=== PATIENT | female | born 1950 | race Caucasian/White ===

== ENCOUNTER 2020-01-06 07:26 | Emergency (ER) | payer OTHER ==
[~2020-01-06] VITALS: Ht 160 cm; Wt 56.7 kg
--- NOTE | 2020-01-06 07:51 | NUR ---
ED Nurse Note: Pt had bilateral flank pain for 4 months pain 09/01. Pt denies hematuria. Pt is alert and orientedx4, ambulatory. Pt has been seen by ERMD. Urine sent to lab. Pt denies nausea, vomiting.
[2020-01-06 07:52] VITALS: BP 151/87
--- NOTE | 2020-01-06 07:57 | Emergency Room Report ---
History of Present Illness General Chief Complaint: Back Pain-No Injury Source: Patient Present Illness HPI Patient is a 69-year-old female presents for increased bilateral low back pain. Reports having intermittent symptoms over the past few days. Had improvement in pain just prior to arrival. Denies any urinary urgency or frequency reports having similar pain in the past and was previously diagnosed with kidney stone many years ago. Does not take any medications regularly. Denies prior surgeries. Denies any lower extremity discomfort or fever. Patient denies any incontinence of urine. Allergies: Coded Allergies: No Known Allergies (Unverified , 01/06/20) COVID-19 Screening Contact w/high risk pt: No Experienced COVID-19 symptoms?: No COVID-19 Testing performed MATHEMATICS DEPARTMENT CHAIR: No Patient History Past Medical History: see triage record Reviewed Nursing Documentation: PMH: Agreed; PSxH: Agreed Nursing Documentation-PMH Past Medical History: No History, Except For Hx Dialysis: No - kidney stones in 2009 Review of Systems All Other Systems: negative except mentioned in HPI Physical Exam Vital Signs Date Time Temp Pulse Resp B/P (MAP) Pulse Ox O2 Delivery O2 Flow Rate FiO2 01/06/20 07:32 98.2 109 20 160/90 (113) 99 Room Air Sp02 EP Interpretation: reviewed, normal General Appearance: normal inspection, well appearing, no apparent distress, alert, GCS 15 Head: atraumatic ENT: normal ENT inspection, hearing grossly normal, normal voice Neck: normal inspection, full range of motion, supple, no bony tend Respiratory: normal inspection, lungs clear, normal breath sounds, no respiratory distress, no retraction, no wheezing Cardiovascular #1: regular rate, rhythm, no edema Gastrointestinal: normal inspection, normal bowel sounds, non tender, soft, no guarding, no hernia Genitourinary: no CVA tenderness Musculoskeletal: normal inspection, back normal, normal range of motion Neurologic: alert, responsive, speech normal, normal inspection Psychiatric: normal inspection, judgement/insight normal, mood/affect normal Medical Decision Making Diagnostic Impression: Primary Impression: Cholelithiasis Additional Impressions: Pancreatic mass Lymphadenopathy Glucosuria ER Course Patient presented for low back pain and flank pain. Differential diagnosis include was not limited to kidney stone, urinary tract infection, gastroenteritis among others. Patient has a benign exam and does not appear to require laboratory testing at this time. Patient was offered laboratory testing which she declined. CT imaging was ordered to evaluate for possible st one.Patient denies any current symptoms other than 1/10 pain currently. Patient with strongly advised to seek primary care for further evaluation. She also declined fingerstick to evaluate for possible diabetes. Patient was advised multiple times that she should have further work-up of sugar in her urine. Patient politely declined.Urinalysis did not show any evidence of any definite infection. Will defer treatment of possible urinary tract infection until culture results.CT imaging read by radiology showed 2cm poorly demonstrated pancreatic head mass with perihepatic pancreatic fat infiltration and peripancreatic adenopathy as well as dilated bile ductsGallbladder stones were also noted. Patient was offered hospitalization and laboratory testing which she declined. Patient states she is not having any significant pain at this time. She declines pain medications. Patient was advised to return if she changed her mind or had any worsening condition or other concerns. This medical record is generated with [employer] center administrator software. There may be some center administrator discrepancies related to use of this software Labs Test 01/06/20 07:50 Urine Color Yellow Urine Appearance Clear Urine pH 5 (4.5-8.0) Urine Specific [place] 1.015 (1.005-1.035) Urine Protein 2+ (NEGATIVE) Urine Glucose (UA) 4+ (NEGATIVE) Urine Ketones 4+ (NEGATIVE) Urine Blood 1+ (NEGATIVE) Urine Nitrite Negative (NEGATIVE) Urine Bilirubin Negative (NEGATIVE) Urine Urobilinogen Normal MG/DL (0.0-1.0) Urine Leukocyte Esterase Negative (NEGATIVE) Urine RBC 0-2 /HPF (0 - 2) Urine WBC 0 /HPF (0 - 2) Urine Squamous Epithelial Cells Few /LPF (NONE/OCC) Urine Bacteria Occasional /HPF (NONE) Last Vital Signs Date Time Temp Pulse Resp B/P (MAP) Pulse Ox O2 Delivery O2 Flow Rate FiO2 01/06/20 07:32 98.2 109 20 160/90 (113) 99 Room Air Status: improved Disposition: HOME, SELF-CARE Condition: Stable Marcello Parks MD Jan 06, 2020 07:57
[2020-01-06 08:03] LABS: APPEARANCE,URINE CLEAR; BILIRUBIN, URINE NEGATIVE (NEGATIVE); GLUCOSE, URINE (UA) 4+ (NEGATIVE); KETONES,URINE 4+ (NEGATIVE); LEUKOCYTE ESTERASE ,URINE NEGATIVE (NEGATIVE); NITRITE,URINE NEGATIVE (NEGATIVE); PH,URINE 5 (4.5-8.0); PROTEIN,URINE 2+ (NEGATIVE); UROBILINOGEN,URINE NORMAL MG/DL (0.0-1.0)
[2020-01-06 08:10] LABS: COLOR,URINE YELLOW
[2020-01-06 09:47] VITALS: BP 147/85
--- NOTE | 2020-01-06 09:48 | NUR ---
ER DISCHARGE NOTE: Patient is cleared to be discharged per ERMD, pt is aox4, on room air, with stable vital signs. pt was given dc and prescription instructions, pt was able to verbalize understanding, pt id band removed. pt is able to ambulate with steady gait. pt took all belongings. Pt educated regarding f/u with GI and diagnoses.
--- NOTE | 2020-01-06 16:28 | Diagnostic Imaging Report ---
Indication: Bilateral low back pain, intermittent symptoms over the past few days Technique: Spiral acquisitions obtained through the abdomen and pelvis. No oral contrast utilized, per emergency room physician request No IV contrast utilized, per referring physician request.. Multiplanar reconstructions were generated. Total dose length product 165 mGycm. CTDIvol(s) 3 mGy. Dose reduction achieved using automated exposure control Comparison: None Findings: There is an ill-defined low-density mass within the pancreatic head and uncinate which measures approximately 2 cm in diameter, poorly visualized due to the lack of IV contrast administration. Additional area of low-attenuation is seen cephalad to this, also measuring approximately 2 cm diameter, and appears cystic. There is some ectasia of the pancreatic duct within the pancreatic body. There are enlarged peripancreatic lymph nodes, the largest measuring 15 mm long axis dimension. There is dilatation of the extrahepatic bile ducts, common bile duct measuring up to 15 cm in diameter. There is mild central intrahepatic biliary ductal dilatation. Lack of IV contrast limits assessment of the other solid organs. Subcentimeter low-attenuation lesions are seen within the liver which are too small to characterize. The gallbladder is distended but not thick walled. There is a gallstone. The spleen, adrenals, kidneys are unremarkable. No retroperitoneal or mesenteric mass or adenopathy. No pelvic mass or adenopathy. There are colonic diverticula. The appendix is normal. No small bowel distention. No free or loculated intraperitoneal gas or fluid is evident. The distal esophagus demonstrates a small sliding-type hiatal hernia. The stomach and duodenum are otherwise unremarkable. The included lung bases demonstrate some atelectasis or scarring on the right. The bones demonstrate mild scoliotic deformity and degenerative spondylosis changes. Impression: Poorly visualized 2 cm low-density mass within the pancreatic head and uncinate, with possibly a second cystic mass versus extension of the pancreatic head lesion cephalad. This is concerning for pancreatic neoplasm. Consider follow-up CT or MRI with pancreatic protocol Prominent peripancreatic lymph nodes, concerning for metastatic lymphadenopathy Dilated extrahepatic and minimally dilated central intrahepatic bile ducts, likely biliary obstruction related to the above Cholelithiasis. Distended gallbladder without wall thickening. Subcentimeter low-attenuation liver lesions, too small to characterize, most likely benign simple cysts. However given the above possibly metastatic deposits should also be considered Colonic diverticulosis. No evidence of diverticulitis Degenerative spondylosis and scoliosis Small sliding-type hiatal hernia Findings previously discussed by phone with Dr. Parks, and a handwritten report was provided to the emergency room via fax The CT scanner at [facility] is accredited by the [employer] and the scans are performed using protocols designed to limit radiation exposure to as low as reasonably achievable to attain images of sufficient resolution adequate for diagnostic evaluation.
== END 2020-01-06 09:49 | disposition home or self-care (01) ==
LOC: EMR 07:45
DX: K80.20 Calculus of gallbladder without cholecystitis without obstruction (principal); K86.9 Disease of pancreas, unspecified; R59.1 Generalized enlarged lymph nodes; R81 Glycosuria; Z87.442 Personal history of urinary calculi; K57.90 Diverticulosis of intestine, part unspecified, without perforation or abscess without bleeding; K44.9 Diaphragmatic hernia without obstruction or gangrene; M47.819 Spondylosis without myelopathy or radiculopathy, site unspecified; M41.9 Scoliosis, unspecified
CPT/HCPCS: 74176; 81003; 99284